=== PATIENT | male | born 1990 | race Caucasian/White ===

== ENCOUNTER 2021-01-01 13:02 | Outpatient (RCR) | payer OTHER | END 2021-01-05 11:01 | LOC: WSOH 13:02 | DX: S80.862A Insect bite (nonvenomous), left lower leg, initial encounter (principal); S80.861A Insect bite (nonvenomous), right lower leg, initial encounter; W57.XXXA Bitten or stung by nonvenomous insect and other nonvenomous arthropods, initial encounter; Z98.890 Other specified postprocedural states; Y99.0 Civilian activity done for income or pay ==

== ENCOUNTER 2021-03-30 12:46 | Outpatient (RCR) | payer OTHER | END 2021-05-22 | disposition home or self-care (01) | LOC: WSOH | DX: M72.2 Plantar fascial fibromatosis (principal); Y99.0 Civilian activity done for income or pay ==

== ENCOUNTER 2021-03-30 14:26 | Outpatient (RCR) | payer OTHER | END 2021-05-22 | disposition home or self-care (01) | LOC: WSOH | DX: M72.2 Plantar fascial fibromatosis (principal); Y99.0 Civilian activity done for income or pay ==